=== PATIENT | male | born 1990 | race Caucasian/White ===

== ENCOUNTER 2016-05-19 05:57 | Emergency (ER) | payer SELFPAY ==
--- NOTE | ~2016-05-19 | CR63 ---
[facility] A Service of [facility] & [facility] RADIOLOGY TEXT RESULTS PATIENT: RAYRAY GARRETT LOCATION: [facility] : [birth year] UNIT #: [id number] AGE: [address]: ANTONY RADFORD APRN SEX: M ORDER DR: [id number] [facility] [address] [place], [place] [address] [id number] MR#: [id number] Acc #: [id number] NAME: RAYRAY GARRETT : 1990 SEX: M STUDY DATE/TIME: 05/19/2016 6:37 UNIT: [facility] ROOM: STUDY DESCRIPTION: CR Chest 2 View Attending Physician: Antony Radford Aprn Ordering Physician: Antony Radford Aprn MEDICAL IMAGING REPORT This report is preliminary unless electronic signature is present EXAM Chest x-ray 05/19/2016. HISTORY 25-year-old male in the ED complaining of 1-week history of cough and shortness of air. TECHNIQUE AP and lateral upright chest series. FINDINGS The examination is negative. The lungs are expanded and clear. Heart size and pulmonary vascularity are within normal limits. No visible pulmonary infiltrate or pleural effusion. IMPRESSION Negative chest. Dictated by... Jagjit Benjamin M.D. THIS IS AN ELECTRONICALLY VERIFIED REPORT Jagjit Benjamin M.D. at 05/19/2016 3:01 PM NADYA/roddy TD: 05/19/2016 10:28 JOB #: [id number] MEDICAL IMAGING REPORT COPY
[~2016-05-19 05:57] MED LIST: KEFLEX500 MG PO
== END 2016-05-19 07:24 | disposition home or self-care (01) ==
LOC: CED 05:57
DX: J04.0 Acute laryngitis (principal); J45.909 Unspecified asthma, uncomplicated
CPT/HCPCS: 71020; 99283